=== PATIENT | male | born 1995 | race Caucasian/White ===

== ENCOUNTER 2023-08-19 15:22 | Emergency (ER) | payer OTHER, SELFPAY ==
[2023-08-19 15:30] VITALS: BP 137/81; PULSE 94; RESP 15; TEMP 36.2; O2SAT 97
--- NOTE | 2023-08-19 15:34 | ED.GENADULT ---
HPI - General Adult General Chief complaint: Chest Pain Stated complaint: Chest Pain Time Seen by Provider: 08/19/23 15:30 Source: patient, RN notes reviewed and old records reviewed Mode of arrival: ambulatory Limitations: no limitations History of Present Illness HPI narrative: 27 year old male who presents to [facility] care with complaints of intermittent episodes of left upper abdominal discomfort that radiates to his left pectoral area and to his shoulder for the past 2 days. Patient reports that he does not have pain at this present time. Patient reports that he vomited X2 last night, reports that may of been due to a panic attack. Patient denies any episodes of shortness of breath or any sweating or any pain down his arm or into his back. MD complaint: left upper abdomen pain radiates to chest and left shoulder Onset (ago): day(s) (2) Location: abdomen (upper left abdomen radiates to left chest and shoulder) Quality: sharp (fleeting pain) Treatments prior to arrival: none Related Data Home Medications Medication Instructions Recorded Confirmed divalproex 500 mg tablet,extended 500 mg PO BID 08/19/23 08/19/23 release 24 hr hydroxyzine HCl 25 mg tablet 25 mg PO BID PRN Anxiety 08/19/23 08/19/23 Allergies Allergy/AdvReac Type Severity Reaction Status Date / Time No Known Allergies Allergy Verified 08/19/23 15:42 Review of Systems Review of Systems: CONSTITUTIONAL: Denies fever, chills, or sweats. EYES: Denies visual changes, redness, or discharge. ENT: Denies rhinorrhea, congestion, sore throat, or otalgia. CARDIOVASCULAR:left chest pain, no palpitations, or edema. RESPIRATORY: Denies cough or dyspnea. GASTROINTESTINAL: intermittent episodes of left upper abdominal pain, nausea, vomiting, reports some diarrhea GENITOURINARY: Denies dysuria or hematuria. SKIN: Denies rash or itching. MUSCULOSKELETAL: Denies back pain, joint pain, or myalgia. NEUROLOGIC: Denies headache, numbness, or weakness. PSYCHIATRIC: Positive for hiatory of anxiety or depression. All systems reviewed & are unremarkable except as noted in HPI and below PMFSH Past Medical History Medical History (Updated 08/20/23 @ 16:06 by Amber Hall NP) Anxiety Bipolar 1 disorder Social History Social History (Updated 08/20/23 @ 15:56 by Amber Hall NP) Smoking status: Current every day smoker Tobacco type: e-cigarettes/vaping Alcohol intake: current Alcohol use details: social Substance use type: marijuana Living arrangements: with family Gender identity (if verbalized by the patient): Male Comments At time of signature, agree with nursing past medical, surgical, social and family history. There is no relevant family history pertinent to the presenting complaint Exam Narrative: GENERAL: Well-appearing, well-nourished, and in no acute distress, denies any pain at present time. HEAD: Normocephalic, atraumatic. EYES: PERRLA and EOMI. ENT: Nares clear, no rhinorrhea or epistaxis. Mucous membranes moist.TM's normal throat pink with no swelling or exudates NECK: Supple. no lyphadenopathy CHEST: Clear to auscultation. No respiratory distress.no cough noted SAO2 97% on room air HEART: Regular rate and rhythm. No murmur heard. Normal peripheral pulses. ABDOMEN: Soft, nontender to palpation, nondistended, normal active bowel sounds. EXTREMITIES: Normal range of motion. No edema. SKIN: Warm, dry, no rash. NEURO: No focal deficits. Alert and oriented x3.anxious Course Course Emergency Course: Patient is aware of diagnosis, understands and agrees to treatment plan.? Anticipatory guidance given.? Patient agrees to follow-up as directed and is aware of reasons to seek care at the emergency department. Portions of this record may have been created with voice recognition software Level of Care: Express Care Visit Vital Signs Vital signs: Vital Signs Temperature 36.2 C L 08/19/23 15:30 Pulse Rate 94 08/19/23 1
--- NOTE | 2023-08-19 15:45 | ECG_ITS ---
SEE SCANNED COPY FOR CONFIRMED REPORT MTDD
== END 2023-08-19 16:25 | disposition short-term general hospital (02) ==
PROVIDERS: Emergency Provider Registered Nurse
DX: R07.89 Other chest pain (principal); R10.12 Left upper quadrant pain; F17.290 Nicotine dependence, other tobacco product, uncomplicated; F41.9 Anxiety disorder, unspecified
CPT/HCPCS: 93005; 99213; G0463